=== PATIENT | male | born 1965 | race Caucasian/White ===

== ENCOUNTER 2020-03-03 17:42 | Emergency (ER) | payer BC ==
[2020-03-03] MEDS ORDERED: Cephalexin 500 MG Cap ONE (18:45)
--- NOTE | 2020-03-03 18:55 | EDM.PDOC ---
ED HPI GENERAL MEDICAL PROBLEM - General Chief Complaint: General Stated Complaint: FISH HOOK Time Seen by Provider: 03/03/20 18:00 Source of Information: Reports: Patient History Limitations: Reports: No Limitations - History of Present Illness INITIAL COMMENTS - FREE TEXT/NARRATIVE: While fishing caught a fishhook in his right lower leg; here for removal. Tdap UTD. Onset: Today Onset Date: 03/03/20 Onset Time: 17:00 Location: Reports: Upper Extremity, Right Quality: Reports: Sharp Improves with: Reports: None Worsens with: Reports: Movement Associated Symptoms: Reports: No Other Symptoms Review of Systems - Review of Systems Review Of Systems: See Below Constitutional: Reports: No Symptoms Respiratory: Reports: No Symptoms Cardiovascular: Reports: No Symptoms Musculoskeletal: Reports: Leg Pain Skin: Reports: Other (Fish hook right lower leg laterally) Neurological: Reports: No Symptoms Psychiatric: Reports: No Symptoms ED EXAM, GENERAL - Physical Exam Exam: See Below Exam Limited By: No Limitations General Appearance: Alert, WD/WN, No Apparent Distress Head: Atraumatic Neck: Normal Inspection Respiratory/Chest: No Respiratory Distress Cardiovascular: Normal Peripheral Pulses, Regular Rate, Rhythm Extremities: Normal Inspection, Normal Range of Motion, Non-Tender Neurological: Alert, Oriented, CN II-XII Intact, Normal Cognition Psychiatric: Normal Affect Skin Exam: Warm, Dry, Intact, Normal Color, Wound/Incision (fish hook right lateral lower leg) ED TRAUMA EXTREMITY PROCEDURES - Foreign Body Removal Indication:: Fish hook embedded right lower foreleg distally Consent Obtained: Patient Performing Doctor:: Pio Us Anesthesia Type: Local Anesthesia Other:: 1% lidocaine 1 cc Findings:: fish hook removed after using 18 melchor need inserted through same hole and retracting through same hole Complications:: No Course - Re-Assessments/Exams Free Text/Narrative Re-Assessment/Exam: 03/03/20 18:57 Removed fish hook without difficulty Tdap up to date Rx for Keflex given to be used as directed Departure - Departure Time of Disposition: 18:59 Disposition: Home, Self-Care 01 Condition: Good Clinical Impression: Fish hook injury of right lower leg - Discharge Information *PRESCRIPTION DRUG MONITORING PROGRAM REVIEWED*: Not Applicable *COPY OF PRESCRIPTION DRUG MONITORING REPORT IN PATIENT BELINDA: Not Applicable Additional Instructions: Keflex 500mg given to patient since pharmacy is closed
[2020-03-03 18:59] VITALS: BP 133/93; PULSE 80
== END 2020-03-03 18:55 | disposition home or self-care (01) ==
LOC: LB.ED 17:42
DX: S80.851A Superficial foreign body, right lower leg, initial encounter (principal); S81.831A Puncture wound without foreign body, right lower leg, initial encounter; W45.8XXA Other foreign body or object entering through skin, initial encounter
CPT/HCPCS: 99283; A9270-GY